=== PATIENT | male | born 2000 ===

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

== ENCOUNTER 2020-03-08 18:42 | Emergency (ER) | payer OTHER, SELFPAY ==
[2020-03-08 18:49] VITALS: BP 133/80; PULSE 65; RESP 16; TEMP 36.5; O2SAT 100
--- NOTE | 2020-03-08 19:07 | ED.GENADUL_ITS ---
Discharge Plan Disposition Patient Disposition: HOME Condition: Stable Discharge Details Chief Complaint: RashLesion Clinical Impression: Poison viviane dermatitis Primary Care Provider: Natalie,Local ED Provider: Diane Ann Home Meds and New Rx's Prescriptions: New prednisone 20 mg tablet See Rx Instructions .ROUTE .COMPLEX Qty: 30 RF: 0 Discharge Instructions Instructions: Poison Viviane (ED) Additional Instructions: Drink plenty of fluids and get plenty of rest. Alternate tylenol and motrin as needed and directed for pain. Take Benadryl as needed and directed for itching. Follow-up with your primary care doctor in 1 week. Return to the emergency department with any worsening or new concerning symptoms. Discharge Data Discharge Physician: Diane Ann Medical Decision Making 19-year-old male presents with pruritic rash to entire body and face that is scattered and getting progressively worse. Vitals within normal limits. He has a vesiculopapular weeping linear versus grouping in clusters rash scattered on extremities and torso, minimal on face. Normal ENT exam. Lungs clear. He appears nontoxic. Suspect most likely poison viviane versus sumac. Discussed with patient that I would recommend treatment with long duration of steroids. Patient states he has had this before and wanted a formal diagnosis and does not want treatment. The risks of no treatment explained including worsening of symptoms, spread to others, risk of secondary bacterial infection. A dose of prednisone was ordered here but he declined. He was agreeable to accept a prescription for prednisone. He was advised on the importance of Benadryl per to prevent itching and scratching. Advised to follow up with the primary care doctor for re-evaluation. Usual and customary return precautions given prior to discharge. Medical Records Medical records reviewed: Yes I reviewed the patient's medical records. HPI General Mode of arrival: ambulatory . Date/Time Provider Initiated Documentation: 03/08/20 18:52 . Limitations to Documentation: no limitations . Information obtained by: patient . HPI Narrative: Patient is a 19-year-old male who presents with itchy rash to his entire body and face for the past 3 days. He admits to similar rash last year which resolved with time and Benadryl. Patient states he works for [employer] and is outside frequently but is unsure of any known exposure. He denies any new soaps, lotions, detergents, meds, foods, recent travel or known sick contacts. He denies fever, sore throat, cough, chest pain, shortness of breath or abdominal pain. Patient has not taken any medications such as Benadryl this week for his symptoms. He admits to right eye swelling that developed yesterday but has since improved. Related Data Home Medications Medication Instructions Recorded Confirmed prednisone See Rx Instructions .ROUTE 03/08/20 .COMPLEX #30 tab Previous Rx's Medication Instructions Recorded prednisone See Rx Instructions .ROUTE 03/08/20 .COMPLEX #30 tab Allergies Allergy/AdvReac Type Severity Reaction Status Date / Time No Known Allergies Allergy Unverified 03/08/20 18:53 General Stated Complaint: RashLesion LORIN: 3 Review of Systems All systems reviewed & are unremarkable except as noted in HPI and below Constitutional Constitutional: Reports as per HPI, Denies chills and Denies fever(s) Eyes Eyes: Denies blurry vision ENT Ears, Nose, Mouth, and Throat: Denies dizziness, Denies sore throat and Denies throat swelling Cardiovascular Cardiovascular: Denies chest pain and Denies dyspnea Respiratory Respiratory: Denies cough and Denies dyspnea Gastrointestinal Gastrointestinal: Denies abdominal pain, Denies diarrhea and Denies vomiting Genitourinary Genitourinary: Denies hematuria and Denies dysuria Musculoskeletal Musculoskeletal: Denies back pain and Denies numbness Integumentary/Breasts Skin/Breast: Reports lesions and Reports rash Neurologic Neurologic: Denies dizziness, Denies localized weakness and Denies numbness Allergic/Immunologic Allergic/Immunologic: Denies throat swelling [facility] Medical History (Updated 03/08/20 @ 20:03 by Diane Ann DO) No significant past medical history (Acute) Surgical History (Updated 03/08/20 @ 20:03 by Diane Ann DO) History of knee surgery (Acute) Social History Smoking/Tobacco Use Status: Never Alcohol Intake: never Substance use type: does not use Do you feel safe at home: Yes Do you feel safe in your relationship?: Yes Exam Const General: cooperative and healthy appearing Orientation: alert and awake HENGA Head: normal to inspection Ears: hearing grossly normal bilaterally, external ears normal and TM's normal bilaterally General nose exam: external nose normal Face and sinus: normal facial exam Mouth: oral mucosae normal Teeth and gingiva: dentition normal Throat: posterior oropharynx normal Eyes General: appearance normal, both eyes and all related structures Periorbital: periorbital findings abnormal right periorbital swelling (mild to moderate) Eyelids: eyelids normal Pupils: PERRL EOM: EOM intact bilaterally Neck Neck: normal visual inspection Lymphatic: no lymphadenopathy noted Chest Chest: normal inspection of the chest Resp Effort & Inspection: normal respiratory effort and able to speak in complete sentences Auscultation: clear to auscultation bilaterally Cardio Rate: regular rate Rhythm: regular rhythm GI Inspection: normal to inspection Palpation: soft, not firm, no guarding, no hepatosplenomegaly, no masses and nontender Auscultation: normal bowel sounds Skin General skin exam: other (Rash appears vesicular papular, weeping, clustered in groups versus linear) Rashes: rashes noted (Face, chest, bilateral arms and legs) Neuro General: patient alert and patient awake Cognition: normal cognition Speech: speech normal Gait: normal gait Motor: muscle tone normal throughout Sensory Exam: no sensory deficits noted Extrem General: normal to inspection, full ROM and capillary refill normal Psych Appearance: grossly normal Mental Status: mental status grossly normal Speech and Movement: speech and movement normal Affect: normal affect Thought Process: normal Course Vital Signs Vital signs: Vital Signs Temperature 97.7 F 03/08/20 18:49 Pulse 65 03/08/20 18:49 Respiratory Rate 16 03/08/20 18:49 Blood Pressure 133/80 03/08/20 18:49 Pulse Oximetry 100 03/08/20 18:49 Temperature 97.7 F 03/08/20 18:49 Temperature Source Skin 03/08/20 18:49 Pulse 65 03/08/20 18:49 Respiratory Rate 16 03/08/20 18:49 Respiratory Effort Non-Labored 03/08/20 18:52 Blood Pressure 133/80 03/08/20 18:49 Blood Pressure Position Sitting 03/08/20 18:49 Pulse Oximetry 100 03/08/20 18:49 Oxygen Delivery Method Room Air 03/08/20 18:49 Oxygen Flow Rate 0 03/08/20 18:49 Pain Level 0 03/08/20 18:49
[2020-03-08 19:43] VITALS: BP 133/80; PULSE 65; RESP 16; TEMP 36.5; O2SAT 100
== END 2020-03-08 19:50 | disposition home or self-care (01) ==
PROVIDERS: Emergency Provider Physician Assistant
DX: L23.7 Allergic contact dermatitis due to plants, except food (principal)
CPT/HCPCS: 99283

== ENCOUNTER 2021-05-27 14:18 | Emergency (ER) | payer OTHER, SELFPAY ==
[2021-05-27 14:31] VITALS: BP 128/78; PULSE 90; RESP 16; TEMP 36.5; O2SAT 100
--- NOTE | 2021-05-27 14:45 | DI.RAD_ITS ---
Exam(s) XR HEEL RT OS CALCIS EXAM: XR HEEL RT OS CALCIS CLINICAL HISTORY: right heel pain TECHNIQUE: COMPARISON: No exams were available for comparison FINDINGS: Two views were obtained. No bony or soft tissue abnormality seen. IMPRESSION: RADIATION DOSE DELIVERED: Total DLP
--- NOTE | 2021-05-27 14:56 | ED.GENADUL_ITS ---
Discharge Plan Disposition Patient Disposition: HOME Condition: Stable Discharge Details Clinical Impression: Heel pain Primary Care Provider: NatalieLocal ED Provider: Guillermina Deleon Home Meds and New Rx's Prescriptions: No Action No Known Home Meds RF: 0 Discharge Instructions Instructions: Plantar Fasciitis (ED) Additional Instructions: Please return immediately to the emergency department if you develop any new or worsening symptoms, if your condition does not improve as expected, or if you become otherwise concerned. It is extremely important that you call soon as possible to make an appointment to be seen in follow-up for this visit by your primary care doctor and a regional director as we discussed. Referrals: Alban Granda DPM [[facility] STAFF PHYSICIAN] - Medical Decision Making Bryan Hendrickson is a 20-year-old man without reported major medical problems who presented to the emergency department with at least 1 year of right-sided heel pain, unchanged over that time. Patient states that he presented to emergency department because he decided to find out what was going on. There is no te nderness to palpation of the right foot or heel. The right foot is neurovascularly intact. Concern for possible foreign body from prior trauma versus occult bony pathology versus plantar fasciitis versus other. Plan for x- rays. Exam/history at this time patient with cellulitis, necrotizing fasciitis, osteomyelitis, septic arthritis, other infectious etiologies symptoms. X-ray negative. Plan for outpatient follow-up with podiatry, PCP. Discussion with Patient regarding return to emergency department precautions, home care, and importance of outpatient follow-up. Disposition decision was made weighing the risks and benefits of hospitalization versus outpatient treatment, the risk for further decompensation, and the patient's wishes. Medical Records Medical records reviewed: Yes I reviewed the patient's medical records. Imaging Data Radiologic Study: Attestation: I personally reviewed and interpreted this imaging study as follows: Radiologist's impression: EXAM: XR HEEL RT OS CALCIS CLINICAL HISTORY: right heel pain TECHNIQUE: COMPARISON: No exams were available for comparison FINDINGS: Two views were obtained. No bony or soft tissue abnormality seen. HPI General Mode of arrival: ambulatory . Date/Time Provider Initiated Documentation: 05/27/21 14:54 . Limitations to Documentation: no limitations . Information obtained by: patient, RN notes reviewed and old records reviewed . HPI Narrative: rByan Hendrickson is a 20-year-old man without reported history of major medical problems presenting to emergency department with right heel pain. Patient reports that he has had pain in the plantar surface of his right heel with weightbearing for at least 1 year, unsure exact time of onset. He recalls no trauma or other inciting event. Patient reports that he only has pain in the heel when he bears weight, never has feels pain when seated or lying down. Does not seem to be worsening or improving over time. Does not seem to be worse when he gets out of bed then when weightbearing any other timen of a day. He denies any other pain, fevers, vomiting, diarrhea, rash, numbness, weakness, shortness of breath, cough. Related Data Home Medications Medication Instructions Recorded Confirmed Unknown [No Known Home Meds] 05/27/21 05/27/21 Allergies Allergy/AdvReac Type Severity Reaction Status Date / Time No Known Allergies Allergy Unverified 05/27/21 15:31 General Stated Complaint: Orthopedic LORIN: 4 Review of Systems Narrative: Constitutional: denies fevers Eyes: denies eye pain ENT: denies ear pain, dental pain, sore throat Cardiovascular: denies chest pain Respiratory: denies SOB, cough GI: denies abdominal pain, vomiting, diarrhea : denies flank pain MSK: denies back pain, neck pain, arthralgias, reports right-sided heel pain Skin: denies rash Neuro: denies headaches, numbness, weakness PFSH Medical History No significant past medical history Surgical History (Updated 04/19/21 @ 13:14 by Rand Latham) History of knee surgery Social History Smoking/Tobacco Use Status: Never Smoking risk assessment performed?: Yes Alcohol Intake: never Substance use type: does not use Do you feel safe at home: Yes Do you feel safe in your relationship?: Yes Exam Narrative Exam Narrative: Constitutional: well and [id number], pleasant, conversing normally HENT: head atraumatic/normocephalic/normal inspection, mucous membranes moist Eyes: conjunctiva normal, sclera normal, pupils 3mm b/l Neck: no stridor, normal ROM, trachea midline Resp: normal work of breathing, speaking full sentences Cardio: normal rate, normal rhythm Skin: warm, dry, normal color, no rash Neuro: alert, not altered, grossly non-focal, normal tone Ext: no edema bilateral lower extremities, DP pulses intact and symmetric, there is no tenderness to palpation at the right plantar heel, posterior/lateral/medial aspect of the heel, and no tenderness to palpation of the plantar surface of the foot, dorsal surface foot. Ranging toes normally. No tenderness palpation of the right ankle. There is no erythema/crepitus/ecchymosis/other skin changes to the right foot, normal inspection of the right foot. Psych: normal mood, normal affect, normal behavior Course Vital Signs Vital signs: Vital Signs Temperature 36.5 C 05/27/21 14:31 Pulse 90 05/27/21 14:31 Respiratory Rate 16 05/27/21 14:31 Blood Pressure 128/78 05/27/21 14:31 Pulse Oximetry 100 05/27/21 14:31 Temperature 36.5 C 05/27/21 14:31 Temperature Source Skin 05/27/21 14:31 Pulse 90 05/27/21 14:31 Respiratory Rate 16 05/27/21 14:31 Respiratory Effort Non-Labored 05/27/21 14:31 Blood Pressure 128/78 05/27/21 14:31 Blood Pressure Position Sitting 05/27/21 14:31 Pulse Oximetry 100 05/27/21 14:31 Oxygen Delivery Method Room Air 05/27/21 14:31 Oxygen Flow Rate 0 05/27/21 14:31 Pain Level 5 05/27/21 14:36
== END 2021-05-27 16:05 | disposition home or self-care (01) ==
PROVIDERS: Emergency Provider Student in an Organized Health Care Education/Training Program
DX: M79.671 Pain in right foot (principal)
CPT/HCPCS: 99283; 73650; 99282

== ENCOUNTER 2021-06-18 09:14 | Outpatient (CLI) | payer OTHER, SELFPAY ==
[2021-06-19 13:52] LABS: COVID-19 RT-PCR UVMMC Result Positive (Negative)
== END 2021-06-18 09:15 | disposition home or self-care (01) ==
PROVIDERS: Visit Provider Nurse Practitioner Family
DX: Z20.822 Contact with and (suspected) exposure to COVID-19 (principal)
CPT/HCPCS: U0003

== ENCOUNTER 2021-09-10 21:13 | Outpatient (REF) | payer OTHER, SELFPAY ==
[2021-09-12 08:32] LABS: HBs Antibody, Quant <3.1 mIU/mL (See Note); Hepatitis B Surface Ab Negative (See Note)
[2021-09-12 08:43] LABS: Hepatitis B Surface Ag Negative (Negative)
[2021-09-12 09:29] LABS: HIV-1/2 Ag & Ab Screen Negative (Negative)
[2021-09-12 09:32] LABS: Syphilis Serology (RPR) Negative (Negative)
[2021-09-12 09:42] LABS: Hepatitis C Ab w Rflx HCV PCR Negative (Negative)
[2021-09-12 13:55] LABS: Chlamydia Result Negative (Negative); GC Result Negative (Negative)
== END 2021-09-10 21:14 | disposition home or self-care (01) ==
LOC: LBN 21:13
PROVIDERS: Visit Provider Nurse Practitioner Family
DX: Z11.3 Encounter for screening for infections with a predominantly sexual mode of transmission (principal); Z11.4 Encounter for screening for human immunodeficiency virus [HIV]; Z11.59 Encounter for screening for other viral diseases
CPT/HCPCS: 86706; 86803; 87340; 87389; 87491; 87591; 86592